=== PATIENT | female | born 1935 | race Caucasian/White ===

== ENCOUNTER 2017-02-20 13:07 | Inpatient (IN) | payer MEDICARE ==
--- NOTE | ~2017-02-20 | HP ---
History And Physical [id number] [place]. [address] NAME: KARMA BOSE : 37 STATUS : ADM IN [facility]#: [id number] AGE: 81 ADM/REG DATE : 02/20/17 MR#: [id number] REPORT SERV DATE: 02/21/17 DICTATED BY: NATE ADAMES DATE: 02/21/17 REPORT STATUS : Draft TRANSCRIBED BY: MODL DATE: 02/21/17 DATE OF ADMISSION: 02/20/2017 REASON FOR ADMISSION: Acute cholecystitis with cholelithiasis. HISTORY OF PRESENT ILLNESS: This pleasant 81-year-old female has a one-year history of intermittent right upper quadrant pain. The pain is sharp and without radiation. It is not clearly associated with fatty food intake. She has had progressive symptoms over the past year and presents with a three-day history of severe right upper quadrant pain that is persistent without radiation. She denies any change in her bowel or bladder habits. She has had nausea and vomiting since yesterday morning. Upon presentation to the emergency department, she was noted to have a white blood cell count was 20,700 with localized right upper quadrant pain with percussive tenderness. On exam today, she has similar symptoms with voluntary guarding. She had a CT scan that revealed a distended gallbladder with wall thickening with a large stone impacted in the neck of the gallbladder with pericholecystic fluid, compatible with acute cholecystitis. Her white blood cell count today is 18,900 with antibiotics. The patient has been taking anti-platelet therapy and has now been discontinued for 48 hours this morning. She has a history of paroxysmal atrial fibrillation and a history of complete heart block, status post pacemaker placement in 2013. She is followed by Edison Burgos MD. She also has hyperlipidemia and hypertension. Her primary care doctor is Dr. Amaya Velasquez. She was admitted for IV antibiotics and cholecystectomy. PAST MEDICAL HISTORY: As above. PAST SURGICAL HISTORY: Total abdominal hysterectomy. SOCIAL HISTORY: The patient is a . She lives alone. She denies alcohol, tobacco, or illicit drug usage. FAMILY HISTORY: Positive for hypertension. ALLERGIES: LATEX. NO DRUG ALLERGIES. MEDICATIONS: Eliquis 2.5 mg p.o. b.i.d., tramadol p.r.n., temazepam p.r.n., lisinopril 20 mg p.o. daily, and metoprolol 20 mg t.i.d. one tablet. REVIEW OF SYSTEMS: No headache, blurred vision, dizziness, chest pain, shortness of breath, cough, dyspnea on exertion, syncope, palpitations, jaundice, or itching. She denies acholic stools. She is having severe abdominal pain. She denied any hematemesis or coffee-ground emesis. PHYSICAL EXAMINATION: GENERAL: Well-developed female, in no apparent distress. VITAL SIGNS: Stable. Neck: Supple. No adenopathy. History And Physical [address] [address] NAME: KARMA BOSE : 37 STATUS : ADM IN [facility]#: [id number] AGE: 81 ADM/REG DATE : 02/20/17 MR#: [id number] REPORT SERV DATE: 02/21/17 DICTATED BY: ANTE ADAMES DATE: 02/21/17 REPORT STATUS : Draft TRANSCRIBED BY: ROJELIO DATE: 02/21/17 CARDIOVASCULAR: Regular rate and rhythm. There are no murmurs. RESPIRATORY: Clear to auscultation. ABDOMEN: Soft. The patient has severe right upper quadrant tenderness with rebound and guarding. BACK: No CVA tenderness. EXTREMITIES: No clubbing, cyanosis, edema, or jaundice. IMAGING: As above. ASSESSMENT: 1. Acute cholecystitis with cholelithiasis. 2. Leukocytosis secondary to acute cholecystitis with cholelithiasis. 3. History of atrial fibrillation, on Eliquis with now 48 hours of no anticoagulation. 4. History of pacemaker placement for complete heart block. 5. History of carotid artery stenosis. 6. Hypertension. 7. Hyperlipidemia. PLAN: At this time, the patient has been evaluated by Cardiology and there is no acute cardiac contraindication. In light of her significant cholecystitis, we will proceed with laparoscopic cholecystectomy, possible cholangiogram, and possible open procedure. I have discussed the risks, benefits, and alternatives with the patient and her daughter including bleeding, infection, poor cosmetic result, chronic pain, injury to the common bile duct, and other intraabdominal structures, as well as need for conversion to open procedure and they wished to proceed. The patient declines continued observation with IV antibiotics. EDVIN/ROJELIO Nate Adames M.D. / [id number] CC: Barry Ibrahim M.D.
--- NOTE | ~2017-02-20 | CN ---
Consultation Report [facility] [address] [place]. [address] NAME: KARMA HAWTHORNE : 37 STATUS : ADM IN PAT#: [id number] AGE: 81 ADM/REG DATE : 02/20/17 MR#: [id number] REPORT SERV DATE: 02/20/17 DICTATED BY: DATE: REPORT STATUS : Draft TRANSCRIBED BY: MODL DATE: 02/20/17 DATE OF CONSULTATION: 02/20/2017 CHIEF COMPLAINT/REASON FOR CONSULT: History of paroxysmal atrial fibrillation in the setting of acute cholecystitis. PRIMARY SQL ANALYST: Edison Burgos M.D. HISTORY OF PRESENT ILLNESS: Mrs. Karma Donald is a very delightful 81-year-old female with a known history of hypertension, carotid stenosis, and paroxysmal atrial fibrillation, documented on pacer monitoring. She also has a history of complete heart block and she has undergone pacemaker placement in December 2011. The patient has been having nausea and vomiting since yesterday morning. She has had right upper quadrant pain and she has right upper quadrant pain when she takes a deep breath. She presented to the hospital and has been diagnosed with acute cholecystitis. She also has a leukocytosis with a left shift and requires surgical intervention. The patient is asymptomatic from cardiac standpoint. She denies chest pain or shortness of breath. The patient has a full functional status. She states that she can vacuum. She lives alone and takes care of all of her activities of daily living without any chest pain or shortness of breath. She has not had any bleeding episodes. She states that she last took her Eliquis yesterday on the , she think she last took it yesterday morning. PAST MEDICAL HISTORY: 1. History of carotid stenosis. 2. History of complete heart block status post pacemaker placement in 2013. 3. Hypertension. 4. Hyperlipidemia. 5. Paroxysmal atrial fibrillation noted on pacemaker monitoring on chronic anticoagulation therapy. SOCIAL HISTORY: The patient lives alone. She does not smoke, drink, or use extracurricular drugs. She is . FAMILY HISTORY: Noncontributory. ALLERGIES: LATEX. OUTPATIENT MEDICATIONS: Include: 1. Eliquis 2.5 mg p.o. b.i.d. 2. Metoprolol 25 mg, one tablet, three times per day. 3. Lisinopril one tablet 20 mg p.o. daily. 4. Tramadol. 5. Temazepam. Consultation Report [place] [id number] [facility] [place]. [address] NAME: KARAM HAWTHORNE : 37 STATUS : ADM IN [facility]#: [id number] AGE: 81 ADM/REG DATE : 02/20/17 MR#: [id number] REPORT SERV DATE: 02/20/17 DICTATED BY: DATE: REPORT STATUS : Draft TRANSCRIBED BY: MODL DATE: 02/20/17 REVIEW OF SYSTEMS: All systems were reviewed and is negative, except for dictated in HPI. PHYSICAL EXAMINATION: VITAL SIGNS: Blood pressure 154/68, pulse 74, temperature 98.5, respirations 19, oxygen is 100% on room air. GENERAL: Mrs. Hawthorne is a well groomed, well appearing 81-year-old female. She is in no distress. NECK: No jugular venous distention. There is carotid bruits, right greater than left. HEART: Regular. Soft S1 and S2. There are no murmurs, rubs, or gallops auscultated. LUNGS: Clear to auscultation in all saxena. ABDOMEN: Tender in the right upper quadrant. There is rebound and guarding present. Bowel sounds are present. EXTREMITIES: Warm and well perfused. There is no pitting edema present. DATA: No EKG is available. Telemetry currently shows likely sinus rhythm with ventricular pacing at 73 beats per minute. Imaging of the abdomen for right upper quadrant pain documented distended gallbladder with large gallstone at the gallbladder neck, pericholecystic fluid compatible with acute cholecystitis. LABORATORY RESULTS: Note, a white blood cell count of 20.7, a hemoglobin 13.7, hematocrit of 41.1, a platelet count of 342. There is a left shift. Sodium 138, potassium 4.2, BUN 13, creatinine 0.94, glucose is 148, lipase is 141. IMPRESSION REPORT AND PLAN: 1. Acute cholecystitis. 2. Leukocytosis, likely secondary to above. 3. History of atrial fibrillation, on chronic anticoagulation, which has been well documented in the past. She has had no anticoagulation for at least 24 hours. She states that her last dose is on 02/19/2017 in the morning. 4. History of complete heart block status post pacemaker placement. 5. History of hypertension. 6. History of carotid stenosis. RECOMMENDATIONS: 1. There is no cardiac contraindication to the patient's emergent noncardiac surgery and I think she would benefit from it to help her prevent getting gangrene of the gallbladder and sepsis. 2. It is okay to hold her Eliquis during the perioperative period and would restart Eliquis when it is safe from a surgical standpoint. 3. We would check EKG. 4. We would hold CARMEN inhibitors during the perioperative period to avoid acute renal failure. 5. Continue to give metoprolol. Consultation Report [place] [address] [address] NAME: KARMA HAWTHORNE : 37 STATUS : ADM IN PAT#: [id number] AGE: 81 ADM/REG DATE : 02/20/17 MR#: [id number] REPORT SERV DATE: 02/20/17 DICTATED BY: DATE: REPORT STATUS : Draft TRANSCRIBED BY: MODL DATE: 02/20/17 6. I have added hydralazine for better blood pressure control throughout the perioperative period. It has been my pleasure to participate in her care. [facility] Apurva Bernal M.D. / [id number] CC: Barry Ibarhim M.D. C. Samuel Ledford, M.D.
--- NOTE | ~2017-02-20 | OP ---
Record Of Operation [facility] [address] [facility] [place]. [address] NAME: KARMA BOSE : 37 STATUS : ADM IN [facility]#: [id number] AGE: 81 ADM/REG DATE : 02/20/17 MR#: [id number] REPORT SERV DATE: 02/21/17 DICTATED BY: NATE ADAMES DATE: 02/21/17 REPORT STATUS : Draft TRANSCRIBED BY: MODL DATE: 02/21/17 DATE OF PROCEDURE: 02/21/2017 PREOPERATIVE DIAGNOSES: 1. Acute cholecystitis with cholelithiasis without obstruction. 2. Atrial fibrillation with Eliquis, off the medication for 48 hours. 3. Complete heart block with pacemaker. 4. Hypertension. 5. Hyperlipidemia. POSTOPERATIVE DIAGNOSES: 1. Gangrenous cholecystitis with cholelithiasis without obstruction. 2. Atrial fibrillation with Eliquis, off the medication for 48 hours. 3. Complete heart block with pacemaker. 4. Hypertension. 5. Hyperlipidemia. PROCEDURE: Laparoscopic cholecystectomy. ANESTHESIA: General. MANAGER FLEET: Allison. COMPLICATIONS: None. DRAINS: None. ESTIMATED BLOOD LOSS: 50 mL. FINDINGS: The patient was noted to have a normal-sized cystic duct with a large stone impacted in the neck of the gallbladder with gangrenous cholecystitis. OPERATIVE TECHNIQUE: The patient was brought to the operating room, and placed on the table in supine position. She had preoperative IV antibiotics. She had sequential hose in place. She voided prior to the procedure. She underwent general endotracheal anesthesia, and was prepped and draped in sterile fashion, and a time-out was completed. Local anesthesia was instilled to the periumbilical skin, and a 15 blade knife was used to make incision through the base of the umbilicus. The skin and fascia were elevated, and a Veress needle was inserted. Water drop test was safely performed. An 11 mm trocar was inserted through the umbilicus followed by the laparoscope. There was no evidence of Veress or trocar injury. The patient was then placed in reverse Trendelenburg and rolled to the left. An 11 mm subxiphoid and two 5 mm right upper quadrant trocars were placed under direct visualization. The gallbladder fundus was grasped and elevated over the liver edge as the infundibulum was retracted inferolaterally. The cystic duct gallbladder junction was identified on its lateral aspect and was circumferentially dissected using hydrodissection. Of note, the patient was noted to have significant dilatation of the gallbladder, and this required Record Of Operation [address] [address] NAME: KARMA BOSE : 37 STATUS : ADM IN PAT#: [id number] AGE: 81 ADM/REG DATE : 02/20/17 MR#: [id number] REPORT SERV DATE: 02/21/17 DICTATED BY: NATE ADAMES DATE: 02/21/17 REPORT STATUS : Draft TRANSCRIBED BY: MODL DATE: 02/21/17 aspiration of the dark black bile of approximately 100 mL to be able to grab the gallbladder, and elevated the fundus. Hydrodissection was used to dissect some of the omental adhesions to the gallbladder to allow the infundibulum to be retracted inferolaterally. After the cystic duct was completely encircled using hydrodissection and dissection with a [place] dissector, it was noted for approximately 3 cm. It was clipped twice proximally and distally, and divided between the clips. The patient was then noted to have anterior and posterior branches of the cystic artery, and they were carefully dissected using blunt dissection, and one clipped twice proximally, and one single time proximally, and both were divided distally with electrocautery. The gallbladder was then removed from the fossa using electrocautery hook, placed in a specimen bag and removed through the umbilicus. This required extension of the fascial and skin incisions due to the large size of the stone and thickening of the gallbladder wall. The laparoscope and trocar were reinserted. Examination of the hepatic fossa noted to be hemostatic. The clips were noted to be intact without encroachment of the common bile duct. There was no evidence of any bleeding or other biliary spillage or other visual abnormalities. In light of the patient's need for Eliquis, FloSeal was placed in the hepatic fossa. The instruments and trocars were then removed under direct visualization as the pneumoperitoneum was aspirated. The umbilical fascia was reapproximated using a [id number] Vicryl suture. The skin edges were reapproximated using absorbable subcuticular Monocryl sutures. Dermabond was applied, and she was extubated, and taken to the recovery room in stable condition. All sponge and needle counts reported correct. EDVIN/ROJELIO Nate Adames M.D. / [id number] CC: Barry Ibrahim M.D.
[~2017-02-20 13:07] MED LIST: ACET500CAP PO; ASAB PO; FISH-EPA1000 MG PO; LIPITOR10 PO; LIPITOR20 PO; LOP25 PO; NIACIN 500 PO; PRIN20 PO; T PO; ULTRAM50 PO; VITAMIN C; VITAMIN C100 MG PO; VITC500 PO; ZYRTEC ALLGY10 MG PO
[2017-02-20] MEDS ORDERED: RESTORIL30 MG PO (13:53)
[2017-02-20] MEDS ORDERED: ULTRAM50 PO (13:53)
[2017-02-20] MEDS ORDERED: PRIN20 PO (13:54)
[2017-02-20] MEDS ORDERED: LOP25 PO (13:55)
[2017-02-20] MEDS ORDERED: ELIQUIS 2.5 MG2.5 MG PO (13:55)
[2017-02-20] MEDS ORDERED: VITAMIN D3 PO (13:56)
[2017-02-20] MEDS ORDERED: MOVE FREE JOIN1 EACH PO (13:57)
[2017-02-20] MEDS ORDERED: VITC500 PO (13:57)
[2017-02-20] MEDS ORDERED: MIRALAX POWDER1 PKT PO (13:58)
[2017-02-20] MEDS ORDERED: CENTRUM PO (13:58)
[2017-02-20 14:01] LABS: BASOPHILS 0.1 %; BASOPHILS ABSOLUTE 0.02 10/3/uL (0.0-0.16); EOSINOPHILS 0 %; ER CBC TAT 0 Hrs 05 Mins; HEMATOCRIT 41.1 % (36.0-48.0); HEMOGLOBIN 13.7 g/dL (12.0-16.0); IMMATURE GRANULOCYTES 0.3 %; IMMATURE GRANULOCYTES ABSOLUTE 0.06 10/3/uL (0.0-0.11); LYMPHOCYTES 7.9 %; LYMPHOCYTES ABSOLUTE 1.64 10/3/uL (0.67-4.30); MEAN CORPUS HGB CONC 33.3 g/dL (32.0-36.0); MEAN CORPUSCULAR HEMOGLOB 29.4 pg (26.0-34.0); MEAN CORPUSCULAR VOLUME 88.2 fL (80-100); MEAN PLATELET VOLUME 9.6 fL (9.2-13.0); MONOCYTES 7.1 %; MONOCYTES ABSOLUTE 1.46 10/3/uL (0.21-1.20); NEUTROPHILS 84.6 %; NEUTROPHILS ABSOLUTE 17.48 10/3/uL (2.02-8.40); PLATELET COUNT 342 10/3/uL (150-400); RBC DISTRIBUTION WIDTH 12.9 % (12.0-16.0); RED CELL COUNT 4.66 10/6/uL (4.0-5.6); WHITE BLOOD CELLS 20.7 10/3/uL (4.5-10.5)
[2017-02-20 14:02] LABS: MANUAL DIFF NO %
[2017-02-20 14:18] LABS: ALBUMIN 3.9 G/DL (3.5-5.0); ALKALINE PHOSPHATASE 101 U/L (45-117); CHLORIDE, SERUM 97 MMOL/L (96-112); CO2 (CARBON DIOXIDE) 29 MMOL/L (24-34); CREATININE 0.94 MG/DL (0.55-1.02); DIRECT BILIRUBIN 0.2 MG/DL (0.0-0.4); GFR AFRICAN AMERICAN 66 ML/MIN (>=60); GFR NON AFRICAN AMERICAN 57 ML/MIN (>=60); INDIRECT BILIRUBIN(NOT ORDER) 0.8 MG/DL (0.1-0.9); POTASSIUM, SERUM 4.2 MMOL/L (3.5-5.3); SGOT(AST) 19 U/L (5-40); SGPT(ALT) 19 U/L (5-65); SODIUM, SERUM 138 MMOL/L (135-148)
[2017-02-20 14:19] LABS: A/G RATIO 0.8 (0.7-1.9); BUN (BLOOD UREA NITROGEN) 13 MG/DL (6-23); GLUCOSE, SERUM 148 MG/DL (60-99); TOTAL PROTEIN 8.9 G/DL (6.0-8.5)
[2017-02-21 06:15] LABS: BASOPHILS 0.1 %; BASOPHILS ABSOLUTE 0.01 10/3/uL (0.0-0.16); EOSINOPHILS 0 %; HEMOGLOBIN 11.5 g/dL (12.0-16.0); IMMATURE GRANULOCYTES 0.4 %; IMMATURE GRANULOCYTES ABSOLUTE 0.08 10/3/uL (0.0-0.11); LYMPHOCYTES 14.3 %; LYMPHOCYTES ABSOLUTE 2.71 10/3/uL (0.67-4.30); MEAN CORPUS HGB CONC 31.9 g/dL (32.0-36.0); MEAN CORPUSCULAR HEMOGLOB 28.7 pg (26.0-34.0); MEAN CORPUSCULAR VOLUME 89.8 fL (80-100); MEAN PLATELET VOLUME 9.6 fL (9.2-13.0); MONOCYTES ABSOLUTE 1.52 10/3/uL (0.21-1.20); NEUTROPHILS 77.2 %; PLATELET COUNT 310 10/3/uL (150-400); RBC DISTRIBUTION WIDTH 13.3 % (12.0-16.0); RED CELL COUNT 4.01 10/6/uL (4.0-5.6); WHITE BLOOD CELLS 18.9 10/3/uL (4.5-10.5)
[2017-02-21 06:16] LABS: MANUAL DIFF NO %
[2017-02-21 06:27] LABS: BUN (BLOOD UREA NITROGEN) 13 MG/DL (6-23); CHLORIDE, SERUM 104 MMOL/L (96-112); CO2 (CARBON DIOXIDE) 28 MMOL/L (24-34); CREATININE 0.85 MG/DL (0.55-1.02); DIRECT BILIRUBIN 0.2 MG/DL (0.0-0.4); GFR AFRICAN AMERICAN 75 ML/MIN (>=60); GFR NON AFRICAN AMERICAN 65 ML/MIN (>=60); INDIRECT BILIRUBIN(NOT ORDER) 0.6 MG/DL (0.1-0.9); SGOT(AST) 19 U/L (5-40); SGPT(ALT) 15 U/L (5-65); SODIUM, SERUM 140 MMOL/L (135-148); TOTAL BILIRUBIN 0.8 MG/DL (0-1.2); TOTAL PROTEIN 7.2 G/DL (6.0-8.5)
[2017-02-21 06:28] LABS: A/G RATIO 0.8 (0.7-1.9); ALBUMIN 3.1 G/DL (3.5-5.0); ALKALINE PHOSPHATASE 82 U/L (45-117); GLOBULIN 4.1 G/DL (2.5-4.1); GLUCOSE, SERUM 105 MG/DL (60-99); POTASSIUM, SERUM 3.3 MMOL/L (3.5-5.3)
[2017-02-22] MEDS ORDERED: NORCO1 TA2 PO (10:07)
== END 2017-02-22 14:03 | disposition home or self-care (01) | DRG 419 ==
LOC: ER 13:07 → 5SO 15:38
PROVIDERS: Emergency Medicine
PROC: 0FT44ZZ Resection of Gallbladder, Percutaneous Endoscopic Approach (ICD-10-PCS; principal; 2017-02-20)
DX: K80.00 Calculus of gallbladder with acute cholecystitis without obstruction (principal); I48.0 Paroxysmal atrial fibrillation; Z95.0 Presence of cardiac pacemaker; I10 Essential (primary) hypertension; E78.5 Hyperlipidemia, unspecified; Z79.899 Other long term (current) drug therapy
CPT/HCPCS: 76705; 80053; 81001; 82248; 83690; 85025; 87040; 88304; 93005; 96374; 96375; 99285; A9270-GY; J0360; J0690; J1170; J2370; J2405; J2543; J2710; J3010